=== PATIENT | female | born 1975 | race Asian ===

== ENCOUNTER 2021-07-08 00:16 | Emergency (ER) | payer BC ==
[~2021-07-08] VITALS: Ht 165.1 cm; Wt 77.2 kg
[~2021-07-08 00:16] MED LIST: HYDR-2678 PO; IBUP-1007 PO
[2021-07-08] MEDS ORDERED: MAG-115 PO (02:01)
[2021-07-08] MEDS ORDERED: LIDO20SO10 MM (02:01)
--- NOTE | 2021-07-08 02:01 | PHYS DOC ---
Past Medical History Past Medical History: No Pertinent History, UTI Past Surgical History: No Surgical History Smoking Status: Never Smoker Alcohol Use: None Drug Use: None General Adult EDM: Chief Complaint: SORE THROAT HPI: HPI: 45-year-old woman presents to the emergency department complaining of 3 days of sore throat, some body aches, denies fevers or chills, no headache or neck stiffness/photophobia, no chest pain or difficulty breathing, says that she is vaccinated to coronavirus 19, no known sick contact she denies any difficulty swallowing, Review of Systems: Review of Systems: Constitutional: Denies fever or chills. [] Eyes: Denies change in visual acuity. [] HENT: Denies nasal congestion, positive for sore throat but no difficulty swallowing Respiratory: Denies cough or shortness of breath. [] Cardiovascular: Denies chest pain or edema. [] GI: Denies abdominal pain, nausea, vomiting, bloody stools or diarrhea. [] : Denies dysuria. [] Musculoskeletal: Denies back pain or joint pain. [] Integument: Denies rash. [] Neurologic: Denies headache, focal weakness or sensory changes. [] Endocrine: Denies polyuria or polydipsia. [] Lymphatic: Denies swollen glands. [] Psychiatric: Denies depression or anxiety. [] Heart Score: C/O Chest Pain: No Risk Factors: Risk Factors: DM, Current or recent (<one month) smoker, HTN, HLP, family history of CAD, obesity. Risk Scores: Score 0 - 3: 2.5% MACE over next 6 weeks - Discharge Home Score 4 - 6: 20.3% MACE over next 6 weeks - Admit for Clinical Observation Score 7 - 10: 72.7% MACE over next 6 weeks - Early Invasive Strategies Allergies: Allergies: Allergies Coded Allergies Type Severity Reaction Last Updated Verified No Known Drug Allergies 09/17/15 No Physical Exam: PE: Gen-well appearing, no acute distress Head: Normocephalic/Atraumatic ENT: atraumatic, PERRLA, EOMI, pharyngeal erythema, tonsillar swelling, exudates present, no masses or pooling of secretions however Neck: supple, full ROM/strength, no JVD, no nuchal rigidity Lungs: no distress, speaks in full sentences, Clear to auscultation bilaterally CV: reg rate, rhythm, no murmus/rubs/gallops, peripheral pulses equal in all extremities Abdomen: soft/nontender, no guarding/rebound tenderness, no rigidity, non distended, normoactive bowel sounds Musculoskeletal: full ROM/strength in all extremities, atraumatic, no swelling Back: full range of motion/strength Skin: intact, no rashes Lymph: no gross CARLA Neuro: alert and oriented x 4, CN 2-12 grossly intact, Motor strength is 5/5 in all extremities, no focal sensory deficits, no focal ataxia, ambulatory with steady gait Psych: normal mood/affect Current Patient Data: Vital Signs: Vital Signs Date Time Temp Pulse Resp B/P (MAP) Pulse Ox O2 Delivery O2 Flow Rate FiO2 07/08/21 01:22 97.8 72 125/79 (88) 100 Room Air 97.8 EKG: EKG: [] Radiology/Procedures: Radiology/Procedures: [] Course & Med Decision Making: Course & Med Decision Making Pertinent Labs and Imaging studies reviewed. (See chart for details) [] Patient presents to the emergency department with sore throat and has clinical symptomatology and exam findings that appear to represent streptococcal pharyngitis, the Centor score is a 4, will treat empirically, no signs of abscess, he is vaccinated to coronavirus 19, I offered the patient some Bicillin long-acting and she preferred this over pills, will also give her some dexamethasone and Motrin for symptoms Discharge patient was seen in the ED for sore throat that I am treating empirically for streptococcal pharyngitis that is presumed based on a high Centor score, there is no apparent evidence of any emergency medical pathology at this time, patient was advised follow-up with their primary care provider /physician in the next 24-48 hours and to return to the ED before then if any new or worsening / concerning symptoms had developed. All questions and concerns were addressed at time of disposition Dragon Disclaimer: Dragon Disclaimer: This electronic medical record was generated, in whole or in part, using a voice recognition dictation system. Departure Departure Impression: Primary Impression: Throat pain in adult Disposition: HOME / SELF CARE / HOMELESS Condition: IMPROVED Referrals: BONIFACIO NOBLE MD (PCP) 2 days Patient Instructions: Strep Throat Additional Instructions: She got a shot of long acting antibiotics because I think she has strep throat, I will put her on some medicine for pain, I want her to drink plenty of fluids and take ibuprofen, I want her to follow-up with her primary care doctor in the next 48 hours, please bring her back to the emergency room at anytime before that if any new or worsening/concerning symptoms develop Scripts Lidocaine HCl (Lidocaine HCl Viscous) 15 Ml Solution 15 ML MM BID PRN for throat pain for 5 Days, #75 ML Prov: LIZETH PRIETO MD 07/08/21 Mag Hydrox/Aluminum Hyd/Simeth (Mylanta Maximum Strength Liq) 355 Ml Oral.susp 355 ML PO BID PRN for PAIN for 7 Days, #355 ML Prov: LIZETH PRIETO MD 07/08/21 LIZETH PRIETO MD Jul 08, 2021 02:01
[2021-07-08] MEDS ORDERED: DEXAMETHASONE 4 MG TABLET PO ONE (02:15)
[2021-07-08] MEDS ORDERED: IBUPROFEN 400 MG TABLET. PO ONE (02:15)
[2021-07-08 02:16] VITALS: BP 132/81
[2021-07-08] MEDS ORDERED: PENICILLIN G BENZATHINE LA 1,200,000 UNIT/2 ML DISP.SYRIN. IM ONE (02:30)
== END 2021-07-08 02:30 | disposition home or self-care (01) ==
LOC: ER 00:16
DX: R07.0 Pain in throat (principal); J02.9 Acute pharyngitis, unspecified; Z87.440 Personal history of urinary (tract) infections
CPT/HCPCS: 96372; 99283; J0561